=== PATIENT | female | born 1995 | race Caucasian/White ===

== ENCOUNTER 2021-02-06 13:18 | Emergency (ER) | payer OTHER ==
[~2021-02-06 13:18] MED LIST: ANUCORT-HC25 MG PR; ANUSOL-HC30 GM PR
== END 2021-02-06 17:06 | disposition home or self-care (01) ==
LOC: FER 13:18
DX: S90.121A Contusion of right lesser toe(s) without damage to nail, initial encounter (principal); W20.8XXA Other cause of strike by thrown, projected or falling object, initial encounter
CPT/HCPCS: 73630

== ENCOUNTER 2021-10-21 13:49 | Emergency (ER) | payer OTHER ==
[2021-10-21 15:32] LABS: BASOPHIL 0.7 % (0-2); EOSINOPHIL 0.9 % (0-5); HCT 39.4 % (37.0-47.0); HGB 13.9 g/dl (12.5-16.0); LYMPHOCYTE 49.7 % (15-48); MCH 32.3 pg (25.0-31.0); MCHC 35.3 g/dL (32.0-36.0); MCV 91.6 fL (78.0-100.0); MPV 9.2 fL (6.0-9.5); NEUTROPHIL 42.5 % (41-80); NRBC 0; PLT 304 K/uL (150-400); RDW 11.7 % (11.5-14.0); WBC 5.9 K/uL (4.0-10.5)
[2021-10-21 16:07] LABS: ALBUMIN 4.3 g/dL (3.4-5.0); BILIRUBIN - TOTAL 0.4 mg/dL (0.2-1.0); BUN/CREAT RATIO (CALC) 12.9 RATIO; CREATININE 0.7 mg/dL (0.51-0.95); GLOBULIN (CALCULATION) 3.7 g/dL; POTASSIUM 3.9 mmol/L (3.5-5.1)
[2021-10-21 16:09] LABS: CORONAVIRUS 2019 SARS-COV-2 NEGATIVE (NEGATIVE); INFLUENZA A NAA NEGATIVE (NEGATIVE)
[2021-10-21] MEDS ORDERED: MEDROL 4MG DOSEP4 MG PO (16:28)
== END 2021-10-21 17:10 | disposition home or self-care (01) ==
LOC: FER 13:49
PROVIDERS: Emergency Medicine
DX: M79.661 Pain in right lower leg (principal); M79.662 Pain in left lower leg; Z91.040 Latex allergy status; Z88.6 Allergy status to analgesic agent; Z88.8 Allergy status to other drugs, medicaments and biological substances; Z20.822 Contact with and (suspected) exposure to COVID-19
CPT/HCPCS: 36415; 71045; 80053; 85025; 93005; U0002

== ENCOUNTER 2021-11-03 12:14 | Emergency (ER) | payer OTHER ==
[~2021-11-03 12:14] MED LIST changes: +MEDROL 4MG DOSEP4 MG PO
== END 2021-11-03 13:14 | disposition home or self-care (01) ==
LOC: FER 12:14
DX: I10 Essential (primary) hypertension (principal); Z87.19 Personal history of other diseases of the digestive system; Z88.6 Allergy status to analgesic agent; Z88.8 Allergy status to other drugs, medicaments and biological substances; Z91.040 Latex allergy status
CPT/HCPCS: 99283